=== PATIENT | female | born 1980 | race Caucasian/White ===

== ENCOUNTER 2016-10-11 07:35 | Day surgery (SDC) | payer BC ==
[2016-10-08 14:59] LABS: BASOPHILS # (AUTO) 0.1 K/uL (0.0-0.2); BASOPHILS % (AUTO) 0.8 % (0.0-2.0); EOSINOPHILS # (AUTO) 0.2 K/uL (0.0-0.4); EOSINOPHILS % (AUTO) 2.7 % (0.0-4.0); HEMATOCRIT 34.7 % (36-48); HEMOGLOBIN 11.5 g/dL (12.0-16.0); LYMPHOCYTES # (AUTO) 1.9 K/uL (1.0-5.5); LYMPHOCYTES % (AUTO) 30.1 % (20.5-51.5); MEAN CORPUSCULAR HEMOGLOBIN 27 pg (27-31); MEAN CORPUSCULAR HGB CONC 33 % (32-36); MEAN CORPUSCULAR VOLUME 80 fL (79.0-98.0); MONOCYTES # (AUTO) 0.6 K/uL (0.0-1.0); MONOCYTES % (AUTO) 8.8 % (1.7-9.3); NEUTROPHILS # (AUTO) 3.6 K/uL (1.8-7.7); NEUTROPHILS % (AUTO) 57.6 % (40.0-70.0); PLATELET COUNT (AUTO) 274 K/uL (130-430); RED BLOOD CELL COUNT(AUTO) 4.33 MIL/uL (4.2-6.2); WHITE BLOOD COUNT (AUTO) 6.4 K/uL (4.8-10.8)
[2016-10-08 15:39] LABS: BILIRUBIN,URINE NEGATIVE (NEGATIVE); BLOOD, URINE NEGATIVE (NEGATIVE); CLARITY/URINE CLEAR (CLEAR); COLOR,URINE YELLOW (YELLOW); GLUCOSE,URINE NEGATIVE (NEGATIVE); KETONES,URINE TRACE (NEGATIVE); LEUKOCYTE ESTERASE ,URINE NEGATIVE (NEGATIVE); NITRITE, URINE NEGATIVE (NEGATIVE); PROTEIN URINE NEGATIVE (NEGATIVE); UROBILINOGEN,URINE 0.2 (0.2-1.0)
[2016-10-08 16:12] LABS: HCG,QUAL RESULT NEGATIVE (NEGATIVE)
[~2016-10-11] VITALS: Ht 167.6 cm; Wt 68.0 kg
[2016-10-11] MEDS ORDERED: CEFAZOLIN SOD 1 GM/ ISO 50 ML PREMIX IV ONE (08:00)
[2016-10-11 08:32] VITALS: O2SAT 98
[2016-10-11] MEDS ORDERED: BUPIVACAINE /EPINEPHRINE/PF 0.25% 30 ML VIAL INJ ONE (08:51)
[2016-10-11] MEDS ORDERED: DEXAMETHASONE SOD PHOSPHATE 4 MG/ML VIAL IVP ONE (08:51)
[2016-10-11] MEDS ORDERED: fentaNYL CITRATE/PF 100 MCG/2 ML AMP IVP ONE (08:51)
[2016-10-11] MEDS ORDERED: ROCURONIUM BROMIDE 10 MG/ML (ZEMURON) IV ONE (08:51)
[2016-10-11] MEDS ORDERED: NS IRRIG SOLN 1000 ML IR ONE (08:51)
[2016-10-11] MEDS ORDERED: SEVOFLURANE 15 MIN GAS INH ONE (08:51)
[2016-10-11] MEDS ORDERED: MIDAZOLAM HCL 5 MG/5 ML VIAL IVP ONE (08:51)
[2016-10-11] MEDS ORDERED: PROPOFOL 200MG/ 20ML VIAL (DIPRIVAN) IV ONE (08:51)
[2016-10-11] MEDS ORDERED: LR 1,000 ML IV.SOLN IV ONE (08:51)
[2016-10-11] MEDS ORDERED: POLYMYXIN 500,000/BACIT.10,000 UNITS in NS IRR 1 L IR ONE (09:17)
[2016-10-11] MEDS ORDERED: LR 1,000 ML IV SCH (09:44)
[2016-10-11] MEDS ORDERED: NALOXONE HCL 0.4 MG/ML AMP (NARCAN) IVP PRN (09:45)
[2016-10-11] MEDS ORDERED: NALBUPHINE HCL 10 MG/ML AMP IVP PRN (09:45)
[2016-10-11] MEDS ORDERED: ONDANSETRON HCL 4 MG/2 ML VIAL IVP PRN ×3 (09:45→10:45)
[2016-10-11] MEDS ORDERED: DIPHENHYDRAMINE INJ 50 MG/ML VIAL IVP PRN (09:45)
[2016-10-11] MEDS ORDERED: ePHEDrine sulfate 50 MG/ML VIAL IVP PRN (09:45)
[2016-10-11] MEDS ORDERED: fentaNYL CITRATE/PF 100 MCG/2 ML AMP IVP PRN (09:45)
[2016-10-11] MEDS ORDERED: HYDROcodone/ACETAMIN 5-325 MG TAB (NORCO/ VICODIN) PO PRN (10:45)
[2016-10-11] MEDS ORDERED: OXYCODONE/ACETAMINOPHEN 5-325 TABLET PO PRN (10:45)
[2016-10-11 12:20] VITALS: BP 113/73; PULSE 72; RESP 16
== END 2016-10-11 13:11 | disposition home or self-care (01) ==
LOC: SDS 07:35
PROVIDERS: ATTEND Specialist
DX: N39.3 Stress incontinence (female) (male) (principal); N81.10 Cystocele, unspecified; Z98.890 Other specified postprocedural states; D64.9 Anemia, unspecified
CPT/HCPCS: 36415; 52000; 57240; 57288; 81003; 84703; 85025; 88305; C1771; J0690; J1100; J2250; J2704; J3010; J3490; J7120